=== PATIENT | female | born 1975 | race African-American/Black ===

== ENCOUNTER 2025-03-21 17:57 | Emergency (ER) | payer OTHER ==
[2025-03-21] MEDS ORDERED: Acetaminophen 500 MG TAB ONE (20:06)
== END 2025-03-21 21:16 | disposition home or self-care (01) ==
LOC: CSHERS 17:57
DX: F41.9 Anxiety disorder, unspecified (principal); G43.909 Migraine, unspecified, not intractable, without status migrainosus; I48.91 Unspecified atrial fibrillation; I25.2 Old myocardial infarction
CPT/HCPCS: 99283

== ENCOUNTER 2025-03-23 13:17 | Emergency (ER) | payer OTHER ==
[2025-03-23 14:13] LABS: #Basophils Less than 0.03 10x3/uL (0.0-0.2); #Eosinophils Less than 0.03 10x3/uL (0.0-0.5); #Monocytes Less than 0.03 10x3/uL (0.0-1.1); #Neutrophils 6.40 10x3/uL (1.5-8.4); %Basophils 0.1 % (0.0-2.0); %Eosinophils 0.0 % (0.0-6.0); %Lymphocytes 12.4 % (18.0-47.0); %Monocytes 0.3 % (0.0-10.0); %Neutrophils 86.4 % (40.0-75.0); Hematocrit 37.4 % (34.9-44.5); Hemoglobin 12.0 g/dL (12.0-15.5); Mean Corpuscular Hemoglobin 28.0 pg (27.0-33.0); Mean Corpuscular Volume 87.4 fL (81.6-98.3); Platelet Count 406 10x3/uL (150-450); Red Blood Cell (RBC) Count 4.28 10x6/uL (3.90-5.03); White Blood Cell (WBC) Count 7.41 10x3/uL (3.5-10.5)
[2025-03-23 14:23] LABS: ALT (SGPT) 21 U/L (Less than 34); AST (SGOT) 21 U/L (11-34); Albumin 4.2 g/dL (3.1-4.5); Alkaline Phosphatase 76 U/L (40-110); Anion Gap 16 mmol/L (10-20); BUN (Urea Nitrogen) 8 mg/dL (7.0-18.7); Bilirubin, Total 0.5 mg/dL (0.3-1.2); Calc. Creatinine Clearance 0 mL/min (70-130); Calcium 9.2 mg/dL (7.8-10.44); Carbon Dioxide 21 mmol/L (22-29); Chloride 108 mmol/L (98-107); Globulin 4.3 g/dL (2.4-3.5); Glucose 145 mg/dL (70-105); Potassium 4.0 mmol/L (3.5-5.1); Sodium 141 mmol/L (136-145)
[2025-03-23 14:24] LABS: Troponin I Less than 0.010 ng/mL (< 0.028)
== END 2025-03-23 15:45 | disposition home or self-care (01) ==
LOC: CSHERS 13:17
DX: F41.8 Other specified anxiety disorders (principal); I48.91 Unspecified atrial fibrillation; I25.2 Old myocardial infarction
CPT/HCPCS: 36415; 71045; 80053; 84484; 85025; 93005